=== PATIENT | male | born 1995 | race Caucasian/White ===

== ENCOUNTER 2018-09-01 02:45 | Emergency (ER) | payer MEDICAID ==
[2018-09-01 03:03] VITALS: TEMP 98.3
--- NOTE | 2018-09-01 03:12 | ED PDOC ---
Arrival/HPI - General Chief Complaint: Cough, Cold, Congestion Time Seen by Provider: 09/01/18 02:55 Historian: Patient - History of Present Illness Narrative History of Present Illness (Text): 09/01/18 03:12 23 year old male whose past medical history includes asthma, chronic bronchitis, and history of pneumonia, presents to the emergency department complaining of shortness of breathing and coughing up blood. Patient reportedly states he was recently seen and hospitalized for bronchitis at [facility] where a CT chest was done and resulted in inflammation of chest. He was placed on antibiotics and steroids. Patient states he takes Phenergan Codeine for his cough, but states he ran out. Patient reportedly states he quit smoking 2 weeks ago. He took a nebulizer treatment prior to arrival without any relief. The pat ient denies any fever, chills, chest pain, abdominal pain, nausea, vomiting, diarrhea, urinary symptoms, back pain, neck pain, headache, dizziness, or any other complaints. PMD: Dr. Parada Symptom Onset: Gradual Symptom Course: Unchanged Activities at Onset: Light Context: Home Past Medical History - Provider Review Nursing Documentation Reviewed: Yes - Pulmonary Hx Respiratory Disorders: Yes Hx Bronchitis: Yes Hx Pneumonia: Yes - Psychiatric Hx Substance Use: No Family/Social History - Physician Review Nursing Documentation Reviewed: Yes Family/Social History: No Known Family HX Smoking Status: Former Smoker Hx Alcohol Use: No Hx Substance Use: No Allergies/Home Meds Allergies/Adverse Reactions: Allergies banana Allergy (Verified 09/01/18 08:11) SWELLING clams Allergy (Verified 09/01/18 08:11) SHORTNESS OF BREATH dog dander Allergy (Verified 09/01/18 08:11) SHORTNESS OF BREATH grass pollen Allergy (Verified 09/01/18 08:11) SHORTNESS OF BREATH ibuprofen [From Advil] Allergy (Verified 09/01/18 08:11) SWELLING milk Allergy (Verified 09/01/18 08:11) SHORTNESS OF BREATH peanut Allergy (Verified 09/01/18 08:11) SHORTNESS OF BREATH ragweed pollen Allergy (Verified 09/01/18 08:11) SHORTNESS OF BREATH soybean Allergy (Verified 09/01/18 08:11) SHORTNESS OF BREATH walnut Allergy (Verified 09/01/18 08:11) SHORTNESS OF BREATH Home Medications: Home Meds Medication Instructions Recorded Confirmed RX: traMADol [Ultram] 50 mg PO TID PRN 09/01/18 09/01/18 Review of Systems - Physician Review All systems were reviewed & negative as marked: Yes - Review of Systems Constitutional: absent: Fevers, Other (Chills) Respiratory: SOB, Cough (coughing up blood) Cardiovascular: absent: Chest Pain Gastrointestinal: absent: Abdominal Pain, Diarrhea, Nausea Genitourinary Male: absent: Dysuria, Frequency, Hematuria Musculoskeletal: absent: Back Pain, Neck Pain Neurological: absent: Headache, Dizziness Physical Exam Vital Signs Reviewed: Yes Vital Signs Temp Pulse Resp BP Pulse Ox 09/01/18 03:00 98.3 F 105 H 22 153/82 H 97 Temperature: Afebrile Blood Pressure: Hypertensive Pulse: Tachycardic Respiratory Rate: Normal Appearance: Positive for: Well-Appearing, Non-Toxic, Comfortable Pain Distress: None Mental Status: Positive for: Alert and Oriented X 3 - Systems Exam Head: Present: Atraumatic, Normocephalic Pupils: Present: PERRL Extroacular Muscles: Present: EOMI Conjunctiva: Present: Normal Mouth: Present: Moist Mucous Membranes Neck: Present: Normal Range of Motion Respiratory/Chest: Present: Wheezes. No: Respiratory Distress, Accessory Muscle Use Cardiovascular: Present: Regular Rate and Rhythm, Normal S1, S2. No: Murmurs Abdomen: No: Tenderness, Distention, Peritoneal Signs Back: Present: Normal Inspection Upper Extremity: Present: Normal Inspection. No: Cyanosis, Edema Lower Extremity: Present: Normal Inspection. No: Edema Neurological: Present: GCS=15, CN II-XII Intact, Speech Normal Skin: Present: Warm, Dry, Normal Color. No: Rashes Psychiatric: Present: Alert, Oriented x 3, Normal Insight, Normal Concentration Medical Decision Making ED Course and Treatment: 09/01/18 03:12 Impression: 23 year old male presents complaining of shortness of breath and coughing up blood. Patient recently hospitalized for bronchitis. Plan: -- Labs -- CXR -- Douneb, Phenergan/Codeine Oral Syrup, Solu-medrol -- Blood Culture -- Reassess and disposition Prior Visits: Notes and results from previous visits were reviewed. Unable to obtain past records from [facility] of reportedly done CT Chest. Progress Notes: ct neg for pneumonia 640pt wants rx for phenergan with codeine , i told unable to give him same left ed without rx and dc papers 09/01/18 03:46 CXR Impression: As read by meNAD. 09/01/18 06:39 - Lab Interpretations I have reviewed the lab results: Yes - Scribe Statement The provider has reviewed the documentation as recorded by the Scribe Agusto Engel Provider Scribe Attestation: All medical record entries made by the Scribe were at my direction and personally dictated by me. I have reviewed the chart and agree that the record accurately reflects my personal performance of the history, physical exam, medical decision making, and the department course for this patient. I have also personally directed, reviewed, and agree with the discharge instructions and disposition. Disposition/Present on Arrival - Present on Arrival Any Indicators Present on Arrival: No History of DVT/PE: No History of Uncontrolled Diabetes: No Urinary Catheter: No History of Decub. Ulcer: No History Surgical Site Infection Following: None - Disposition Have Diagnosis and Disposition been Completed?: Yes Diagnosis: Chronic bronchitis Disposition: ELOPEMENT - ER ONLY Disposition Time: 06:30 Condition: UNKNOWN Discharge Instructions (ExitCare): Chronic Bronchitis Prescriptions: Benzonatate [Tessalon Perles] 100 mg PO TID #21 sgl Referrals: Joshua Parada MD [Primary Care Provider] - Follow up with primary Forms: [employer] (Irish)
[2018-09-01] MEDS ORDERED: Promethazine/Cod 6.25mg-10mg/5ml Syr UD PO STA (03:20)
[2018-09-01] MEDS: Albuterol-Ipratrop 3 mg / 0.5 (3 ml) UD IH SCH ×3 (03:30→04:00)
[2018-09-01 03:59] LABS: BASO # 0.04 K/mm3 (0.0-2.0); BASO % 0.3 % (0.0-3.0); EOS # 0.6 (0.0-0.7); EOS % 4.7 % (1.5-5.0); GRAN # 9.91 (1.4-6.5); GRAN % 74.7 % (50.0-68.0); HEMOGLOBIN 15.2 g/dL (14.0-18.0); LYMPH # 1.9 (1.2-3.4); LYMPH % 14.6 % (22.0-35.0); MEAN CORPUSCULAR HEMOGLOBIN 29.6 pg (25.0-35.0); MEAN CORPUSCULAR HGB CONC 34.8 g/dl (31.0-37.0); MEAN PLATELET VOLUME 10.2 fl (7.0-11.0); MONO # 0.8 (0.1-0.6); MONO % 5.7 % (1.0-6.0); RBC 5.14 10^6/uL (3.5-6.1); RED CELL DISTRIBUTION WIDTH 12.8 % (11.5-14.5); WHITE BLOOD COUNT 13.3 10^3/uL (4.5-11.0)
[2018-09-01 04:07] LABS: ALB/GLOB RATIO 1.4 (1.1-1.8); ALBUMIN 4.4 g/dL (3.0-4.8); ALT/SGPT 50 U/L (7-56); AST/SGOT 21 U/L (17-59); BLOOD UREA NITROGEN 9 mg/dL (7-21); CALCIUM 9.1 mg/dL (8.4-10.5); GFR NON-AFRICAN AMERICAN > 60
[2018-09-01 04:19] LABS: B-TYPE NATRIURETIC PEPTIDE 29.7 pg/mL (0-450); TROPONIN I < 0.01 ng/mL
[2018-09-01] MEDS ORDERED: Iohexol 350 MG/100 ML VIAL ONE (04:45)
[2018-09-01 07:43] VITALS: BP 142/75; PULSE 85; RESP 18; O2SAT 100
--- NOTE | 2018-09-01 08:55 | RAD ---
Date of service: 09/01/2018 HISTORY: sob COMPARISON: No prior. FINDINGS: LUNGS: No active pulmonary disease. PLEURA: No significant pleural effusion identified, no pneumothorax apparent. CARDIOVASCULAR: No aortic atherosclerotic calcification present. Normal cardiac size. No pulmonary vascular congestion. OSSEOUS STRUCTURES: No significant abnormalities. VISUALIZED UPPER ABDOMEN: Normal. OTHER FINDINGS: None. IMPRESSION: No active disease.
--- NOTE | 2018-09-01 13:55 | CT ---
Date of service: 09/01/2018 PROCEDURE: CT Chest with contrast HISTORY: fever cough COMPARISON: None available. TECHNIQUE: Contiguous axial images were obtained through the chest with intravenous contrast enhancement. Sagittal and coronal reconstructions were performed. IV contrast: Radiation dose: Total exam DLP = 594.47 mGy-cm. This CT exam was performed using one or more of the following dose reduction techniques: Automated exposure control, adjustment of the mA and/or kV according to patient size, and/or use of iterative reconstruction technique. FINDINGS: LUNGS: Clear lungs. Visualized airway clear. MEDIASTINUM: Unremarkable thoracic aorta. No aneurysm or dissection. Normal sized heart. Main pulmonary artery unremarkable. No vascular congestion. No lymphadenopathy. No aortic atherosclerotic calcification or mural plaque present. PLEURA: No pleural fluid. No pneumothorax. BONES: No fracture. No destructive lesion. UPPER ABDOMEN: Grossly unremarkable. OTHER FINDINGS: None. IMPRESSION: Unremarkable contrast enhanced CT of the chest.
== END 2018-09-01 06:30 | disposition left against medical advice (07) ==
LOC: MERGE 02:45 → ED 02:45
DX: J42 Unspecified chronic bronchitis (principal); Z87.891 Personal history of nicotine dependence
CPT/HCPCS: 71045; 71260; 80053; 82550; 83615; 83735; 83880; 84484; 85025; 85378; 87040; 96374; 99283; J2930; Q9967

== ENCOUNTER 2018-09-07 03:02 | Emergency (ER) | payer MEDICAID ==
[2018-09-07 03:04] VITALS: BMI 26.9
[2018-09-07] MEDS ORDERED: Albuterol-Ipratrop 3 mg / 0.5 (3 ml) UD ONE (03:13)
[2018-09-07 03:17] VITALS: TEMP 98.1
[2018-09-07] MEDS ORDERED: Albuterol 0.083% Inhal Sol (2.5 mg/3 mL) UD INH STA ×2 (03:21→04:06)
--- NOTE | 2018-09-07 03:29 | ED PDOC ---
Arrival/HPI - General Chief Complaint: Medical Clearance Time Seen by Provider: 09/07/18 03:05 Historian: Patient - History of Present Illness Narrative History of Present Illness (Text): 09/07/18 03:24 23 year old male, whose past medical history includes asthma, chronic bronchitis, and history of pneumonia, presents to the emergency department by Karla RAMIRES, for evaluation of asthma and medical clearance. Patient presents w ith acute wheezing and respiratory distress. Patient denies any fevers, chills, headache, dizziness, chest pain, abdominal pain, nausea, vomiting, diarrhea, back pain, neck pain, urinary/bowel changes, or any other complaint. Time/Duration: Prior to Arrival Symptom Onset: Gradual Symptom Course: Unchanged Context: Exertion Past Medical History - Provider Review Nursing Documentation Reviewed: Yes - Cardiac Hx Cardiac Disorders: No - Pulmonary Hx Respiratory Disorders: Yes Hx Bronchitis: Yes Hx Pneumonia: Yes - Neurological Hx Neurological Disorder: No - HEENT Hx HEENT Disorder: No - Renal Hx Renal Disorder: No - Endocrine/Metabolic Hx Endocrine Disorders: No - Hematological/Oncological Hx Blood Disorders: No - Integumentary Hx Dermatological Disorder: No - Musculoskeletal/Rheumatological Hx Musculoskeletal Disorders: Yes Hx Back Pain: Yes (Chronic) - Gastrointestinal Hx Gastrointestinal Disorders: No - Genitourinary/Gynecological Hx Genitourinary Disorders: No - Psychiatric Hx Psychophysiologic Disorder: No Hx Substance Use: No - Anesthesia Hx Anesthesia: No Family/Social History - Physician Review Nursing Documentation Reviewed: Yes Family/Social History: No Known Family HX Smoking Status: Former Smoker Hx Alcohol Use: Yes Hx Substance Use: No Allergies/Home Meds Allergies/Adverse Reactions: Allergies banana Allergy (Verified 09/01/18 08:11) SWELLING clams Allergy (Verified 09/01/18 08:11) SHORTNESS OF BREATH dog dander Allergy (Verified 09/01/18 08:11) SHORTNESS OF BREATH grass pollen Allergy (Verified 09/01/18 08:11) SHORTNESS OF BREATH ibuprofen [From Advil] Allergy (Verified 09/01/18 08:11) SWELLING milk Allergy (Verified 09/01/18 08:11) SHORTNESS OF BREATH peanut Allergy (Verified 09/01/18 08:11) SHORTNESS OF BREATH ragweed pollen Allergy (Verified 09/01/18 08:11) SHORTNESS OF BREATH soybean Allergy (Verified 09/01/18 08:11) SHORTNESS OF BREATH walnut Allergy (Verified 09/01/18 08:11) SHORTNESS OF BREATH Home Medications: Home Meds Medication Instructions Recorded Confirmed traMADol [Ultram] 50 mg PO TID PRN 09/01/18 09/01/18 Review of Systems - Physician Review All systems were reviewed & negative as marked: Yes - Review of Systems Constitutional: absent: Fevers, Night Sweats Respiratory: SOB, Wheezing. absent: Cough Cardiovascular: absent: Chest Pain Gastrointestinal: absent: Abdominal Pain, Diarrhea, Nausea, Vomiting Genitourinary Male: absent: Urinary Output Changes Musculoskeletal: absent: Back Pain, Neck Pain Neurological: absent: Headache, Dizziness Physical Exam - Physical Exam Narrative Physical Exam (Text): 09/07/18 03:31 Gen: VS reviewed, alert, well developed, well nourished, nontoxic, mild distress. ENT: normal pharynx. Eye: EOMI, PERRL. Neck: no JVD, supple, no adenopathy. CV: regular rate, regular rhythm, no rubs, no murmur, no gallops, S1, S2, pulses equal and strong. Pulm: no distress, bilateral wheeze, no rhonchi, breath sounds equal, no rales. Abd: soft, nontender, no guarding, no rebound, no rigidity, normal bowel sounds. Ext: no edema. Skin: good color, no rash, no cyanosis. Psych: responds appropriately to questions, normal affect. Neuro: oriented x 3, CN2-12 intact grossly, motor intact, sensation intact. Vital Signs Reviewed: Yes Vital Signs Temp Pulse Resp BP Pulse Ox 09/07/18 03:17 98.1 F 118 H 22 148/104 H 95 Temperature: Afebrile Blood Pressure: Hypertensive Pulse: Tachycardic Respiratory Rate: Normal Appearance: Positive for: Well-Appearing, Non-Toxic, Comfortable Pain Distress: None Mental Status: Positive for: Alert and Oriented X 3 Medical Decision Making ED Course and Treatment: 09/07/18 03:31 Impression: 23 year old male brought by police for medical clearance. Plan: -- Albuterol -- Prednisone -- Reassess and disposition Prior Visits: Notes and results from previous visits were reviewed. Progress Notes: 09/07/18 04:05 re-eval, patient appears comfortable and able to talk in full sentences. on lung exam there is a mild bilateral exp wheeze with good air exchange. will give one more breathing treatment and discharge from the ED. - Medication Orders Current Medication Orders: Discontinued Medications Albuterol Sulfate (Albuterol 0.083% Inhal Leila (2.5 Mg/3 Ml) Ud) 2.5 mg INH STAT STA Stop: 09/07/18 03:22 Prednisone (Prednisone Tab) 60 mg PO STAT ONE Stop: 09/07/18 03:22 - Scribe Statement The provider has reviewed the documentation as recorded by the Desirae Betancourt Provider Scribe Attestation: All medical record entries made by the Scribe were at my direction and personally dictated by me. I have reviewed the chart and agree that the record accurately reflects my personal performance of the history, physical exam, medical decision making, and the department course for this patient. I have also personally directed, reviewed, and agree with the discharge instructions and disposition. Disposition/Present on Arrival - Present on Arrival Any Indicators Present on Arrival: No History of DVT/PE: No History of Uncontrolled Diabetes: No Urinary Catheter: No History of Decub. Ulcer: No History Surgical Site Infection Following: None - Disposition Have Diagnosis and Disposition been Completed?: Yes Diagnosis: Asthma Disposition: HOME/ ROUTINE Disposition Time: 04:13 Patient Plan: Discharge Patient Problems: Current Active Problems Problem Status Onset Asthma Acute Condition: STABLE Discharge Instructions (ExitCare): Asthma, Adult (DC) Additional Instructions: SHARLA PHELPS, thank you for letting us take care of you today. Your provider was Dr. Casimiro Coyle and you were treated for asthma exacerbation. The emergency medical care you received today was directed at your acute symptoms. If you were prescribed any medication, please fill it and take as directed. It may take several days for your symptoms to resolve. Return to the Emergency Department if your symptoms worsen, do not improve, or if you have any other problems. Please contact your doctor or call one of the physicians/clinics you have been referred to that are listed on the Patient Visit Information form that is included in your discharge packet. Bring any paperwork you were given at discharge with you along with any medications you are taking to your follow up visit. Our treatment cannot replace ongoing medical care by a primary care pro vider outside of the emergency department. Thank you for allowing the [email or web address] team to be part of your care today. If you had an X-Ray or CT scan: A Radiologist will review the ED reading if any change in treatment is needed we will contact you. If you had a blood, urine, or wound culture: It will take several days for the results, if any change in treatment is needed we will contact you. If you had an STI test: It will take 48 hours for the results. Please call after 1 week if you have not heard back. Prescriptions: Prednisone [Deltasone] 40 mg PO DAILY 5 Days #10 tablet Referrals: Joshua Mccarthy MD [Primary Care Provider] - Follow up with primary Forms: [employer] (Hebrew)
[2018-09-07 04:24] VITALS: BP 161/81; PULSE 100; RESP 20; O2SAT 100
== END 2018-09-07 04:26 ==
LOC: ED 03:02
DX: J45.909 Unspecified asthma, uncomplicated (principal); Z87.01 Personal history of pneumonia (recurrent); Z87.891 Personal history of nicotine dependence; Z65.3 Problems related to other legal circumstances